=== PATIENT | male | born 1975 | race Caucasian/White ===

== ENCOUNTER 2016-09-02 22:01 | Observation (INO) | payer MEDICARE ==
--- NOTE | 2016-09-02 22:56 | C.PDOC ---
History Of Present Illness 41M c/o constant non-exertional non-radiating left side chest pain for 3 hours. feels same as pain for which he has been seen here before. says he is "drowsy" from taking seroquel 200mg this evening for sleep. he denies any cocaine or etoh and says last IVDA was "2 or 3 weeks ago." Time Seen by Provider: 09/02/16 22:55 Chief Complaint (Nursing): Chest Pain Past Medical History Vital Signs: Last Vital Signs Temp 97.9 F 09/02/16 22:23 Pulse 84 09/02/16 23:53 Resp 14 09/02/16 22:23 BP Pulse Ox 96 09/02/16 23:19 - Medical History PMH: Anxiety, Depression, Gall Bladder Disease, Hepatitis, HIV, Kidney Stones Surgical History: Cholecystectomy Family History: States: Other (nc) - Social History Hx Alcohol Use: No Hx Substance Use: Yes (methadone) - Immunization History Hx Tetanus Toxoid Vaccination: Yes Hx Influenza Vaccination: Yes Hx Pneumococcal Vaccination: Yes Review Of Systems Except As Marked, All Systems Reviewed And Found Negative. Constitutional: Negative for: Fever, Chills Cardiovascular: Positive for: Chest Pain Respiratory: Negative for: Cough, Shortness of Breath Gastrointestinal: Negative for: Nausea, Vomiting, Abdominal Pain Neurological: Negative for: Weakness, Numbness, Altered Mental Status, Headache Physical Exam - Physical Exam Appears: Non-toxic, No Acute Distress, Other (sleepy) Skin: Warm, Dry, No Diaphoretic Head: Atraumatic Eye(s): bilateral: PERRL Lips: No Swelling Cardiovascular: Rhythm Regular, No Murmur Respiratory: No Decreased Breath Sounds, No Accessory Muscle Use, No Rales, No Rhonchi, No Stridor, No Wheezing Gastrointestinal/Abdominal: Soft, No Tenderness Extremity: No Swelling Pulses: Left Radial: Normal, Right Radial: Normal Neurological/Psych: Oriented x3, Other (no focal deficits) ED Course And Treatment - Laboratory Results Result Diagrams: 09/02/16 23:30 09/02/16 23:30 O2 Sat by Pulse Oximetry: 96 Medical Decision Making Medical Decision Making: ecg- nsr 89, nl axis, nl int, no acute ischemia 1252am disc w dr harmon who will admit for obs for chest pain Disposition - Disposition Disposition: HOSPITALIZED Disposition Time: 00:53 Condition: STABLE - Clinical Impression Clinical Impression: Chest pain
[2016-09-02 23:33] LABS: BASO % 0.5 % (0.0-2.0); EOS # 0.1 K/uL (0.0-0.7); EOS % 2.6 % (0.0-4.0); HEMATOCRIT 34.2 % (35.0-51.0); LYMPH # 2.1 K/uL (1.0-4.3); LYMPH % 36.6 % (20.0-40.0); MEAN CELL VOLUME 80.3 fL (80.0-94.0); MEAN CORPUSCULAR HEMOGLOBIN 26.4 pg (27.0-31.0); MEAN CORPUSCULAR HGB CONC 32.9 g/dL (33.0-37.0); MEAN PLATELET VOLUME 7.5 fL (7.2-11.7); MONO # 0.8 K/uL (0.0-0.8); MONO % 14.6 % (0.0-10.0); NRBC % 0.1 % (0.0-2.0); RED CELL DISTRIBUTION WIDTH 15.8 % (11.5-14.5); WHITE BLOOD COUNT 5.7 K/uL (4.8-10.8)
[2016-09-02 23:40] LABS: CHLORIDE 101 mmol/L (98-107); POTASSIUM 3.7 mmol/L (3.6-5.2); SODIUM 137 mmol/L (132-148)
[2016-09-02 23:42] LABS: GFR AFRICAN-AMERICAN > 60
[2016-09-02 23:43] LABS: ALB/GLOB RATIO 0.9 (1.0-2.1); ALKALINE PHOSPHATASE 57 U/L (38-126); ALT/SGPT 70 U/L (21-72); AST/SGOT 68 U/L (17-59); BILIRUBIN,TOTAL 1.2 mg/dL (0.2-1.3); BLOOD UREA NITROGEN 23 mg/dL (9-20); CALCIUM 9.3 mg/dl (8.6-10.4); CARBON DIOXIDE 23 mmol/L (22-30); GLUCOSE,RANDOM 100 mg/dL (75-110); TOTAL PROTEIN 8.5 g/dL (6.3-8.3)
[2016-09-02 23:44] LABS: ALCOHOL SERUM < 10 mg/dl (0-10)
[2016-09-03 05:29] VITALS: BP 113/75; PULSE 81; RESP 20; TEMP 97.8; O2SAT 99
--- NOTE | 2016-09-03 10:34 | RAD ---
HISTORY: cp COMPARISON: Comparison chest 06/25/2016. FINDINGS: LUNGS: Mild bibasilar atelectasis PLEURA: No significant pleural effusion identified, no pneumothorax apparent. CARDIOVASCULAR: Normal. OSSEOUS STRUCTURES: No significant abnormalities. VISUALIZED UPPER ABDOMEN: Normal. OTHER FINDINGS: None. IMPRESSION: Mild bibasilar atelectasis
--- NOTE | 2016-09-03 19:55 | CARD ---
APPROVED REPORT EKG Measurement Heart [id number] ME [id number] <Conclusion> Normal sinus rhythm Normal ECG
== END 2016-09-03 05:29 | disposition left against medical advice (07) ==
LOC: C.ER 22:01 → C.9E 09-03 00:51
PROVIDERS: ADMIT Internal Medicine; ATTEND Internal Medicine
DX: R07.9 Chest pain, unspecified (principal); B20 Human immunodeficiency virus [HIV] disease; Z87.442 Personal history of urinary calculi; Z68.21 Body mass index [BMI] 21.0-21.9, adult
CPT/HCPCS: 71010; 80053; 84484; 85025; 93005; G0378; G0480